=== PATIENT | male | born 1985 | race Hispanic/Latino ===

== ENCOUNTER 2021-09-20 11:16 | Emergency (ER) | payer SELFPAY ==
[~2021-09-20] VITALS: Ht 180.3 cm; Wt 108.0 kg
[2021-09-20] MEDS ORDERED: KETOROLAC TROMETHAMINE 30 MG/ML VIAL IV STA (11:39)
[2021-09-20] MEDS ORDERED: KETOROLAC TROMETHAMINE 30 MG/ML VIAL ONE (11:58)
[2021-09-20] MEDS ORDERED: ONDANSETRON HCL INJ 2MG/ML 2ML 2 MG/ML VIAL IV STA (14:14)
[2021-09-20] MEDS ORDERED: MECLIZINE HCL 12.5 MG TAB PO ONE (14:15)
[2021-09-20] MEDS ORDERED: MELOXICAM7.5 MG PO (14:22)
== END 2021-09-20 14:35 | disposition home or self-care (01) ==
LOC: FSED 11:40
DX: R10.84 Generalized abdominal pain (principal); N50.812 Left testicular pain; N50.811 Right testicular pain; N43.3 Hydrocele, unspecified; E11.9 Type 2 diabetes mellitus without complications; K76.0 Fatty (change of) liver, not elsewhere classified
CPT/HCPCS: 74176; 76870; 80053; 80076; 81003; 85025; 99284; J1885